=== PATIENT | female | born 1985 | race Caucasian/White ===

== ENCOUNTER 2016-08-27 16:07 | Emergency (ER) | payer MEDICAID ==
[2016-08-27 16:16] VITALS: BP 143/90
[2016-08-27] MEDS ORDERED: KETOROLAC 60 MG/2 ML VIAL IM STA (16:52)
[2016-08-27] MEDS ORDERED: DEXAMETHASONE 10 MG/ML VIAL PO STA (16:53)
[2016-08-27] MEDS ORDERED: CYCLOBENZAPRINE 10 MG TABLET PO STA (16:53)
--- NOTE | 2016-08-27 16:55 | ED Physician Documentation ---
History of Present Illness - Stated complaint Stated Complaint: R SHOULDER PX- NO INJ - Chief complaint Chief Complaint: Ext Problem - History obtained from History obtained from: Patient, Family - History of Present Illness Timing: How many years ago (2) Pain level max: 7 Pain level now: 7 Improved by: rest Worsened by: movement Associated symptoms: intermittent numbness, tingling to the R hand. - Additonal information Additional information: Patient states that she has had her right shoulder pain for the past several years, worsening over the past few days. 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 - Present Medications Home Medications: Ambulatory Orders Medication Instructions Recorded Confirmed Cyclobenzaprine [Flexeril] 10 mg PO TID PRN #20 tablet 08/27/16 Meloxicam [Mobic] 7.5 mg PO BID PRN #20 tablet 08/27/16 - Allergies Allergies/Adverse Reactions: Allergies Allergy/AdvReac Type Severity Reaction Status Date / Time No Known Drug Allergies Allergy Verified 08/27/16 16:16 - Social History Does the pt smoke?: Yes Smoking Status: Current every day smoker Does the pt drink ETOH?: Yes ETOH Use: Beer Does the pt have substance abuse?: Yes Substance Use and Type: Marijuana - Immunizations Immunizations are current?: Yes - POLST Patient has POLST: No PD ED PE NORMAL - Vitals Vital signs reviewed: Yes - General General: Alert and oriented X 3, No acute distress - Neck Neck: Supple, no meningeal sign, No bony TTP - Cardiac Cardiac: RRR - Respiratory Respiratory: No respiratory distress, Clear bilaterally - Derm Derm: Warm and dry - Extremities Extremities: No deformity, No tenderness to palpate, Other (Mild pain with abduction above 90degress and pain with internal rotation. no tenderness over the glenohumeral joint) - Neuro Neuro: Alert and oriented X 3 Results - Vitals Vitals: Vital Signs - 24 hr 08/27/16 16:13 Temperature 36.1 C L Heart Rate 79 Respiratory 12 Rate Blood Pressure 143/90 H O2 Saturation 100 Oxygen O2 Source Room air PD MEDICAL DECISION MAKING - ED course Complexity details: considered differential, d/w patient ED course: Patient is a 30-year-old female with ongoing right shoulder pain for the past 2 years. Unclear etiology. Will place on steroids, anti-inflammatory and muscle relaxants for home. She is very well-appearing, nontoxic. Afebrile. No evidence of DVT. No evidence of bony abnormality on exam, at this time and will have her follow-up with her doctor for further evaluation and care. Patient counseled regarding signs and symptoms for which I believe and urgent re -evaluation would be necessary. Patient with good understanding of and agreement to plan and is comfortable going home at this time This document was made in part using voice recognition software. While efforts are made to proofread this document, sound alike and grammatical errors may occur. Departure - Departure Disposition: 01 Home, Self Care Clinical Impression: Shoulder pain Qualifiers: Laterality: right Chronicity: chronic Qualified Code(s): M25.511 - Pain in right shoulder Condition: Good Instructions: ED Shoulder Pain [facility] Follow-Up: Radha Melendez ARNP [Primary Care Provider] - Within 1 week Prescriptions: Cyclobenzaprine [Flexeril] 10 mg PO TID PRN #20 tablet PRN Reason: Spasms Meloxicam [Mobic] 7.5 mg PO BID PRN #20 tablet PRN Reason: pain Comments: The cause of your symptoms is unclear. Return if you worsen. Your blood pressure was elevated today on check in to the emergency department. This does not mean that you have hypertension, it is a common phenomenon to check into the emergency department and have elevated blood pressure. I recommend that you see your primary care physician within the week to have it rechecked when you're feeling better. Do not drive or operate heavy machinery while taking the Flexeril Discharge Date/Time: 08/27/16 17:11
[2016-08-27] MEDS ORDERED: CYCLOBENZAPRINE 10 MG TABLET PO ONE (17:02)
[2016-08-27] MEDS ORDERED: KETOROLAC 60 MG/2 ML VIAL ONE (17:02)
[2016-08-27] MEDS ORDERED: DEXAMETHASONE 10 MG/ML VIAL ONE (17:02)
== END 2016-08-27 17:11 | disposition home or self-care (01) ==
LOC: ED 16:07
DX: M25.511 Pain in right shoulder (principal); R03.0 Elevated blood-pressure reading, without diagnosis of hypertension; F17.200 Nicotine dependence, unspecified, uncomplicated
CPT/HCPCS: 96372; 99283; A9270

== ENCOUNTER 2016-09-16 15:47 | Outpatient (CLI) | payer MEDICAID ==
--- NOTE | 2016-09-17 12:51 | XRAY Report ---
CERVICAL SPINE: 09/16/2016 AP, lateral, swimmers, oblique, odontoid, and flexion extension lateral views were done. CLINICAL HISTORY: Neck and shoulder pain. FINDINGS: C-spine is seen down to the C7-T1 level on the lateral view. No subluxation is seen. Mil d reversal of the normal lordotic curve of the C-spine is seen on neutral views. This suggests some muscle spasm. Flexion and extension views show no limitation in movement of the cervical spine. Oblique views show neural foramina to be normal. Odontoid process is normal. IMPRESSION: MILD REVERSAL OF NORMAL LORDOTIC CURVE OF THE C-SPINE IS NOTED ON NEUTRAL VIEW. THIS MA Y INDICATE MUSCLE SPASM. NORMAL MOBILITY OF THE C-SPINE IS SEEN ON FLEXION/EXTENSION VIEWS. JOB #: [id number] EXT JOB #:[id number]
--- NOTE | 2016-09-17 12:52 | XRAY Report ---
RIGHT SHOULDER, THREE VIEWS: 09/16/2016 CLINICAL HISTORY: Patient has pain in the right shoulder. FINDINGS: Soft tissue appears normal. Bones show no fracture. Right AC joint is normal. Right gle nohumeral joint is normal. Right acromion shows no significant spurring. IMPRESSION: NORMAL RIGHT SHOULDER. JOB #: [id number] EXT JOB #:[id number]
== END 2016-09-16 15:48 | disposition home or self-care (01) ==
LOC: DI.S 15:47
PROVIDERS: ATTEND Nurse Practitioner Family
DX: M25.511 Pain in right shoulder (principal)
CPT/HCPCS: 72052

== ENCOUNTER 2016-11-03 04:32 | Emergency (ER) | payer MEDICAID ==
[2016-11-03] MEDS ORDERED: LIDOCAINE PATCH 5% TOP ONE (04:58)
[2016-11-03] MEDS ORDERED: LIDOCAINE PATCH 5% TOP STA (04:58)
--- NOTE | 2016-11-03 05:00 | ED Physician Documentation ---
PD HPI NECK PAIN - Stated complaint Stated Complaint: RT SHOULDER,NECK PAIN - Chief complaint Chief Complaint: Ext Problem - History obtained from History obtained from: Patient, Family - History of Present Illness Timing - onset: Chronic Timing - details: Gradual onset, Still present Location: Upper, Right Quality: Pain, Spasm, Similar to prior episodes Worsened by: Movement, Palpation Contributing factors: Lifting, Twisting Similar symptoms before: Work up / diagnostics, Treatment, Follow up Recently seen: Clinic - Additional information Additional information: Patient is a 31 year old female with a history of thoracic outlet syndrome who is presenting to the emergency department for neck pain and arm tingling. Patient states that she recently had a therapy session and her hand seemed more swollen than usual. Patient states that it is similar to her previous episodes. patient states that she has one more physical therapy appointments then she has her mri. patient states that her partner made her come in to get checked out. Patient denied any new trauma, or new symptoms. Review of Systems Constitutional: denies: Fever, Chills Eyes: denies: Loss of vision Ears: denies: Ear pain, Drainage/discharge Nose: denies: Rhinorrhea / runny nose, Congestion Throat: denies: Oral lesions / sores, Sore throat Cardiac: denies: Chest pain / pressure GI: denies: Abdominal Pain, Nausea, Vomiting Skin: denies: Rash, Lesions Musculoskeletal: reports: Neck pain, Back pain, Extremity pain, Extremity swelling Neurologic: denies: Generalized weakness, Focal weakness, Numbness Immunocompromised: denies: Immunocompromised PD PAST MEDICAL HISTORY - Past Medical History Cardiovascular: None Respiratory: None Endocrine/Autoimmune: None : None HEENT: None Psych: None Musculoskeletal: None Derm: None - Past Surgical History 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, 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 - Allergies Allergies/Adverse Reactions: Allergies Allergy/AdvReac Type Severity Reaction Status Date / Time No Known Drug Allergies Allergy Verified 11/03/16 04:45 - Social History Does the pt smoke?: Yes Smoking Status: Current every day smoker Does the pt drink ETOH?: Yes Does the pt have substance abuse?: Yes - Immunizations Immunizations are current?: Yes - POLST Patient has POLST: No PD ED PE NORMAL - Vitals Vital signs reviewed: Yes - General General: Alert and oriented X 3, No acute distress - HEENT HEENT: Atraumatic, PERRL - Neck Neck: Supple, no meningeal sign - Cardiac Cardiac: RRR, No murmur - Respiratory Respiratory: No respiratory distress - Abdomen Abdomen: Soft, Non distended - Derm Derm: Normal color, Warm and dry, No rash - Extremities Extremities: No deformity, Other (mild edema of right upper extremity) - Neuro Neuro: Alert and oriented X 3, No motor deficit, No sensory deficit - Psych Psych: Normal mood PD ED PE EXPANDED - Neck Neck: Soft tissue TTP (tenderness to palpation of right paraspinal cervical muscles) Results - Vitals Vitals: Vital Signs - 24 hr 11/03/16 04:39 Temperature 36.5 C Heart Rate 80 Respiratory 15 Rate Blood Pressure 123/89 H O2 Saturation 97 Oxygen O2 Source Room air PD MEDICAL DECISION MAKING - ED course Complexity details: reviewed old records, re-evaluated patient, considered differential, d/w patient, d/w family ED course: Patient was seen and examined at bedside. Patient stated that she did not want flexeril and that she had recently taken nsaids. trigger point injection was performed and lidoderm was placed over the muscles. there was no indication for imaging or further work up at this point. Patient was stable for discharge with outpatient follow up. Departure - Departure Disposition: 01 Home, Self Care Clinical Impression: Muscle spasm Condition: Good Instructions: ED Spasm Muscle Follow-Up: Radha Melendez ARNP [Primary Care Provider] - Within 1 week Comments: Your symptoms today are being caused by an exacerbation of your chronic issues. You will need to continue with the physical therapy and the mri. You can continue with nsaids and stretching for pain, and massage therapy may be helpful. You should try elevating the affected arm. you should follow up with your pmd this week for further evaluation and care.
[2016-11-03 05:31] VITALS: BP 120/80
== END 2016-11-03 05:31 | disposition home or self-care (01) ==
LOC: ED 04:32
DX: M62.830 Muscle spasm of back (principal); G54.0 Brachial plexus disorders; F17.200 Nicotine dependence, unspecified, uncomplicated
CPT/HCPCS: 20552; 99283; A9270

== ENCOUNTER 2018-09-25 21:44 | Emergency (ER) | payer OTHER, MEDICAID ==
[2018-09-25 21:57] VITALS: BP 150/101
[2018-09-25] MEDS ORDERED: SILVER SULFADIAZINE CREAM 25 GM TUBE TOP STA (22:30)
--- NOTE | 2018-09-25 22:33 | ED Physician Documentation ---
History of Present Illness - Stated complaint Stated Complaint: R ARM BURN - Chief complaint Chief Complaint: Burn - History obtained from History obtained from: Patient - History of Present Illness Timing: Today Pain level max: 8 Pain level now: 4 - Additonal information Additional information: r forearm burn from hot oil at work. Nothing makes it better or worse. 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 09/25/18 - Allergies Allergies/Adverse Reactions: Allergies Allergy/AdvReac Type Severity Reaction Status Date / Time No Known Drug Allergies Allergy Verified 09/25/18 21:58 - Social History Does the pt smoke?: Yes Smoking Status: Current every day smoker Does the pt drink ETOH?: Yes ETOH Use: Beer Does the pt have substance abuse?: Yes - Immunizations Immunizations are current?: No Immunizations: TDAP >10years/unknown - POLST Patient has POLST: No PD ED PE NORMAL - Vitals Vital signs reviewed: Yes - General General: Alert and oriented X 3, No acute distress - HEENT HEENT: Moist mucous membranes - Derm Derm: Warm and dry - Extremities Extremities: Other (Right forearm 1% tbsa partial-thickness burn to the volar aspect of the forearm. Not circumferential.) - Neuro Neuro: Alert and oriented X 3 Results - Vitals Vitals: Vital Signs - 24 hr 09/25/18 21:54 Temperature 36.4 C L Heart Rate 78 Respiratory 16 Rate Blood Pressure 150/101 H O2 Saturation 98 Oxygen O2 Source Room air PD MEDICAL DECISION MAKING - ED course Complexity details: considered differential, d/w patient ED course: Patient with a partial-thickness burn to the right forearm. Silvadene cream was placed and Kerlix wrapped around this. We will have her follow-up with her doctor for wound check in a few days. Will prescribe Silvadene for home. Patient counseled regarding signs and symptoms for which I believe and urgent re-evaluation would be necessary. Patient with good understanding of and agreement to plan and is comfortable going home at this time This document was made in part using voice recognition software. While efforts are made to proofread this document, sound alike and grammatical errors may occur. Patient is right-handed Departure - Departure Disposition: 01 Home, Self Care Clinical Impression: Partial thickness burn Condition: Good Instructions: ED Burn D 2nd Follow-Up: your,doctor in 1 week for recheck [Other] Prescriptions: Silver Sulfadiazine [Silvadene] 1 gm TP BID PRN #1 cream..g. PRN Reason: burn Comments: Return if you worsen. Follow-up with your doctor for a wound check in 3 to 4 days. Return especially for redness, swelling or drainage from the wound. Discharge Date/Time: 09/25/18 22:42
== END 2018-09-25 22:42 | disposition home or self-care (01) ==
LOC: ED 21:44
DX: T22.011A Burn of unspecified degree of right forearm, initial encounter (principal); T31.0 Burns involving less than 10% of body surface; X10.2XXA Contact with fats and cooking oils, initial encounter; Y93.G3 Activity, cooking and baking; Y99.0 Civilian activity done for income or pay; F17.200 Nicotine dependence, unspecified, uncomplicated
CPT/HCPCS: 1040M; 99282; 99283; A9270

== ENCOUNTER 2023-10-22 08:15 | Emergency (ER) | payer MEDICAID ==
--- NOTE | 2023-10-22 08:38 | ED Physician Documentation ---
History of Present Illness - Stated complaint Stated Complaint: VOMITTING BLOOD - Chief complaint Chief Complaint: Abd Pain - History obtained from History obtained from: Patient, Family - Additonal information Additional information: 38-year-old woman who has no listed medical history but admits to heavy alcohol use has been having some vaginal bleeding for a few weeks with no possibility of per her. Last night she felt early satiety and went outside to vomit. It was not clear that she was vomiting but initially because it was in the dark. Then she continued to vomit blood overnight and when her significant other noted it she went outside to look at the vomit in the yard and was also bloody. She has no history of bleeding or liver issues but She is jaundiced on exam. States that she only drinks truly's and only a few a day but has been trying to cut back. 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 - Present Medications Home Medications: Ambulatory Orders Medication Instructions Recorded Confirmed No Known Home Medications 10/22/23 10/22/23 - Allergies Allergies/Adverse Reactions: Allergies Allergy/AdvReac Type Severity Reaction Status Date / Time No Known Drug Allergies Allergy Verified 10/22/23 08:29 - Social History Does the pt smoke?: Yes Smoking Status: Current every day smoker Does the pt drink ETOH?: Yes Does the pt have substance abuse?: Yes - Immunizations Immunizations are current?: No Immunizations: TDAP >10years/unknown - POLST Patient has POLST: No PD ED PE NORMAL - Vitals Vital signs reviewed: Yes (Tachycardic) - General General: Alert and oriented X 3, No acute distress - HEENT HEENT: Other (She has scleral icterus) - Neck Neck: Supple, no meningeal sign - Cardiac Cardiac: Other (Tachycardic, regular, no murmur) - Respiratory Respiratory: No respiratory distress, Clear bilaterally - Abdomen Abdomen: Soft, Non tender - Extremities Extremities: No edema - Neuro Neuro: Alert and oriented X 3 Results - Vitals Vitals: Vital Signs - 24 hr 10/22/23 10/22/23 10/22/23 08:24 08:53 09:29 Temperature 36.4 C L Heart Rate 123 H 107 H 121 H Heart Rate [ Monitoring electrodes] Respiratory 20 27 H 16 Rate Blood Pressure 144/83 H 118/73 116/79 Blood Pressure [Left Brachial artery] O2 Saturation 98 99 93 10/22/23 10/22/23 10/22/23 09:30 10:00 10:30 Temperature Heart Rate 114 H 109 H 99 Heart Rate [ Monitoring electrodes] Respiratory 21 24 25 H Rate Blood Pressure 136/85 H 121/66 115/72 Blood Pressure [Left Brachial artery] O2 Saturation 98 97 95 10/22/23 10/22/23 10/22/23 11:00 11:30 11:46 Temperature 36.2 C L Heart Rate 104 H Heart Rate [ 96 Monitoring electrodes] Respiratory 24 18 Rate Blood Pressure 115/72 107/62 Blood Pressure 101/67 [Left Brachial artery] O2 Saturation 96 97 10/22/23 10/22/23 10/22/23 11:50 12:00 12:30 Temperature 37 C 36.6 C Heart Rate 97 Heart Rate [ 98 96 Monitoring electrodes] Respiratory 20 19 19 Rate Blood Pressure 119/76 124/72 Blood Pressure 113/74 120/67 [Left Brachial artery] O2 Saturation 97 96 97 10/22/23 10/22/23 10/22/23 13:00 13:52 14:00 Temperature 36.9 C Heart Rate 88 74 Heart Rate [ 87 87 Monitoring electrodes] Respiratory 19 20 14 Rate Blood Pressure 123/71 114/72 Blood Pressure 123/71 117/76 [Left Brachial artery] O2 Saturation 96 96 97 10/22/23 10/22/23 10/22/23 14:03 14:15 14:30 Temperature 36.8 C 36.9 C Heart Rate 85 Heart Rate [ 90 85 Monitoring electrodes] Respiratory 20 17 17 Rate Blood Pressure 121/79 Blood Pressure 114/72 121/66 [Left Brachial artery] O2 Saturation 97 96 96 10/22/23 10/22/23 10/22/23 15:00 15:09 15:30 Temperature 36.9 C Heart Rate 87 91 Heart Rate [ 90 87 Monitoring electrodes] Respiratory 17 17 18 Rate Blood Pressure 128/75 122/74 Blood Pressure 127/74 127/74 [Left Brachial artery] O2 Saturation 96 95 96 10/22/23 16:00 Temperature 36.4 C L Heart Rate 87 Heart Rate [ Monitoring electrodes] Respiratory 18 Rate Blood Pressure 115/72 Blood Pressure [Left Brachial artery] O2 Saturation 97 Oxygen O2 Source Room air - Labs Labs: Laboratory Tests 10/22/23 10/22/23 10/22/23 08:35 08:35 08:35 WBC 14.0 H RBC 2.51 L Hgb 8.0 L Hct 25.1 L MCV 100.0 H MCH 31.9 H MCHC 31.9 L RDW 16.4 H Plt Count 166 MPV 10.2 Neut # (Auto) 11.2 H Lymph # (Auto) 1.9 [place] # (Auto) 0.8 Eos # (Auto) 0.0 Baso # (Auto) 0.1 Absolute Nucleated RBC 0.00 Nucleated RBC % 0.0 PT 23.3 H INR 2.3 H Sodium Potassium Chloride Carbon Dioxide Anion Gap BUN Creatinine Estimated GFR (MDRD) Glucose Calcium Total Bilirubin AST ALT Alkaline Phosphatase Total Protein Albumin Globulin Albumin/Globulin Ratio Beta HCG, Quant Ethyl Alcohol Blood Type A POSITIVE Antibody Screen NEGATIVE Crossmatch IS Only See Detail 10/22/23 10/22/23 08:35 15:16 WBC RBC Hgb 7.8 L Hct 23.1 L MCV MCH MCHC RDW Plt Count MPV Neut # (Auto) Lymph # (Auto) [place] # (Auto) Eos # (Auto) Baso # (Auto) Absolute Nucleated RBC Nucleated RBC % PT INR Sodium 134 L Potassium 4.2 Chloride 106 Carbon Dioxide 20 L Anion Gap 8.0 BUN 13 Creatinine 0.6 Estimated GFR (MDRD) 111 Glucose 130 H Calcium 8.6 Total Bilirubin 6.4 H AST 53 H ALT 23 Alkaline Phosphatase 134 H Total Protein 6.4 Albumin 3.1 L Globulin 3.3 Albumin/Globulin Ratio 0.9 L Beta HCG, Quant < 0.6 Ethyl Alcohol < 10.0 Blood Type Antibody Screen Crossmatch IS Only PD Medical Decision Making - ED course ED course: This is a 38-year-old woman who has no significant medical history but probably has alcoholism and is jaundiced who presents with upper GI bleeding. She was administered IV fluids and Protonix Workup demonstrates significant anemia, macrocytic. Elevated INR, evidence of liver disease on CMP and no alcohol on board. I discussed the case with our surgeon, Dr. Escoto and given the high pretest probability for varices [place]. . In addition to the above interventions I also ordered 1 unit of transfusion, IV Rocephin and octreotide bolus and drip given the concern for varices. Discussed with her her MELD score of 25 points. And discriminant factor of 58 points suggesting potential benefit for steroid therapy. Spoke with RYAN Perez at [facility], agrees with xfer, req FFP/Vit K, no more steroids, defers to hospitalist for admit. Excepted by Dr. Mihai Phillips pending a bed at 12:50 PM to [facility]. I did order a second unit of blood when her repeat H&H done after the first unit was slightly lower. That said she did not have any evidence of active bleeding here, no hematemesis or melena. - Critical Care Time(min): 45 Time Includes: Direct patient care, Review records, Reassess patient, Document care, Coordinate care, Medical consult, Family consult for tx dec Data interpretation: Labs, Pulse ox Procedures included in critical care time: Peripheral IV Departure - Departure Disposition: 02 Transfer Acute Care Hosp Clinical Impression: Upper GI bleed, Alcoholic hepatitis Condition: Critical Forms: PCP List
[2023-10-22] MEDS: SODIUM CHLORIDE 0.9% 1,000 ML IV STA (08:43)
[2023-10-22] MEDS: ONDANSETRON 4 MG/2 ML VIAL IVP STA (08:44)
[2023-10-22] MEDS: PANTOPRAZOLE 80 MG in SODIUM CHLORIDE 0.9% 100ML 100 ML IV STA ×2 (08:55→09:27)
[2023-10-22 09:02] LABS: BASOPHILS # (AUTO) 0.1 10^3/uL (0.0-0.1); BASOPHILS % (AUTO) 0.6 %; HCT - HEMATOCRIT 25.1 % (37.0-47.0); LYMPHOCYTES # (AUTO) 1.9 10^3/uL (1.5-3.5); LYMPHOCYTES % (AUTO) 13.4 %; MEAN CORPUSCULAR HEMOGLOBIN 31.9 pg (27.0-31.0); MEAN CORPUSCULAR HGB CONC 31.9 g/dL (32.0-36.0); MEAN PLATELET VOLUME 10.2 fL (7.9-10.8); MONOCYTES # (AUTO) 0.8 10^3/uL (0.0-1.0); MONOCYTES % (AUTO) 5.7 %; NEUTROPHILS # (AUTO) 11.2 10^3/uL (1.5-6.6); NEUTROPHILS % (AUTO) 79.9 %; PLT - PLATELET COUNT 166 10^3/uL (130-450); RED BLOOD COUNT 2.51 10^6/uL (4.20-5.40); RED CELL DISTRIBUTION WIDTH 16.4 % (12.0-15.0)
[2023-10-22 09:13] LABS: ALBUMIN 3.1 g/dL (3.2-5.5); ALBUMIN/GLOBULIN RATIO 0.9 (1.0-2.2); ALKALINE PHOSPHATASE 134 IU/L (42-121); ALT ALANINE AMINOTRANSFERASE 23 IU/L (10-60); AST ASPARTATE AMINOTRANSFERASE 53 IU/L (10-42); BILIRUBIN,TOTAL 6.4 mg/dL (0.2-1.0); BUN - BLOOD UREA NITROGEN 13 mg/dL (6-20); CALCIUM 8.6 mg/dL (8.5-10.3); CARBON DIOXIDE - CO2 20 mmol/L (21-32); CHLORIDE 106 mmol/L (101-111); CREATININE 0.6 mg/dL (0.6-1.3); ETOH - ETHANOL < 10.0 mg/dL; GFR - MDRD 111 (>89); GLUCOSE 130 mg/dL (74-104); POTASSIUM 4.2 mmol/L (3.5-4.5); SODIUM 134 mmol/L (135-145); TOTAL PROTEIN 6.4 g/dL (6.4-8.9)
[2023-10-22 09:14] LABS: INR 2.3 (0.8-1.2); PT - PROTHROMBIN TIME 23.3 secs (9.9-12.6)
[2023-10-22] MEDS: methylPREDNISolone SUCCINATE 40 MG/ML VIAL IVP STA (10:00)
[2023-10-22] MEDS: cefTRIAXone 1 GM VIAL IVP STA (10:01)
[2023-10-22] MEDS: OCTREOTIDE 100 MCG/ML VIAL IVP STA (10:01)
[2023-10-22] MEDS: OCTREOTIDE 500 MCG in SODIUM CHLORIDE 0.9% 100ML 95 ML IV STA (10:05)
[2023-10-22] MEDS ORDERED: PHYTONADIONE 10 MG/ML AMP IVP STA (12:30)
[2023-10-22] MEDS: PHYTONADIONE INJ (ADULT) 10 MG in SODIUM CHLORIDE 0.9% 50 ML SUBQ ONE (13:14)
[2023-10-22 15:25] LABS: HCT - HEMATOCRIT 23.1 % (37.0-47.0); HGB - HEMOGLOBIN 7.8 g/dL (12.0-16.0)
[2023-10-22 16:17] VITALS: BP 115/72; O2SAT 97
== END 2023-10-22 16:09 | disposition short-term general hospital (02) ==
LOC: ED 08:15
DX: K92.2 Gastrointestinal hemorrhage, unspecified (principal); K70.10 Alcoholic hepatitis without ascites; F10.10 Alcohol abuse, uncomplicated; Y90.0 Blood alcohol level of less than 20 mg/100 ml; D53.9 Nutritional anemia, unspecified; R79.1 Abnormal coagulation profile; F17.200 Nicotine dependence, unspecified, uncomplicated
CPT/HCPCS: 36415; 36430; 80053; 82077; 84702; 85014; 85018; 85025; 85610; 86850; 86900; 86901; 86920; 96361; 96365; 96375; 99291; J2354; J7040; P9016; P9017